=== PATIENT | male | born 1990 ===

== ENCOUNTER 2020-09-12 13:04 | Inpatient (IN) ==
[2020-09-12] MEDS ORDERED: SODIUM CHLORIDE 0.9% 1,000 ML IV STA (13:14)
[2020-09-12] MEDS ORDERED: DIPH/TET/ACEL PERT BOOSTER VACCINE 0.5 ML VIAL IM ONE (13:15)
[2020-09-12 13:34] LABS: Basophils % 0.3 % (0.0-0.8); Eosinophils # 0.1 10*3/uL (0.0-0.87); Hematocrit 44.6 VOL% (42.0-52.0); Hemoglobin 14.8 GM/DL (14.0-18.0); Immature Granulocytes % 0.3 %; Immature Granulocytes Absolute 0.02 #; Lymphocytes # 1.6 10*3/uL (1.4-4.0); Lymphocytes % 26.7 % (21.2-54.2); Mean Corpuscular HGB Conc 33.2 GM/DL (32-36); Mean Corpuscular Volume 92.1 FL (87-102); Mean Platelet Volume 9.2 FL (9.6-12.0); Monocytes % 10.5 % (1.7-12.7); Neutrophils % 61.2 % (38.7-73.9); Platelet Count 250 T/CUMM (130-400); Red Blood Count 4.84 MC/CUMM (3.8-5.5); Red Cell Distribution Width 12.2 % (9.3-17.3); White Blood Count 5.8 T/CUMM (4-12)
[2020-09-12] MEDS ORDERED: ONDANSETRON 4 MG/2 ML VIAL IV PRN ×2 (13:56→15:58)
[2020-09-12] MEDS ORDERED: ACETAMINOPHEN 325 MG TABLET PO PRN (13:56)
[2020-09-12] MEDS ORDERED: SUCCINYLCHOLINE 200 MG/10 ML VIAL ONE (14:00)
[2020-09-12] MEDS ORDERED: MIDAZOLAM 2 MG/2 ML VIAL ONE (14:00)
[2020-09-12] MEDS ORDERED: propofoL 200 MG/20 ML VIAL IV ONE (14:00)
[2020-09-12] MEDS ORDERED: fentaNYL 100 MCG/2 ML VIAL ONE (14:00)
[2020-09-12] MEDS ORDERED: LIDOCAINE 2% 5 ML VIAL ONE (14:00)
[2020-09-12 14:05] LABS: Albumin 3.6 G/DL (3.4-5.0); Bilirubin,Total 0.4 MG/DL (0.20-1.00); Calcium 8.5 MG/DL (8.5-10.1); Osmolality,Calculated 287.1 MOS/KG (273-304); Potassium 3.6 MMOL/L (3.5-5.1); Total Protein 7.4 G/DL (6.4-8.2)
[2020-09-12] MEDS ORDERED: SODIUM CHLORIDE 0.9% 1,000 ML IV ONE (14:17)
[2020-09-12] MEDS ORDERED: LACTATED RINGERS 0 ML IV ONE (14:17)
[2020-09-12 14:22] LABS: PT Patient Result 10.9 SECS (10.5-12.0); Partial Thromboplastin Time 24.2 SECS (23.9-33.8)
[2020-09-12] MEDS ORDERED: ROCURONIUM 50 MG/5 ML VIAL IV ONE (14:24)
[2020-09-12] MEDS ORDERED: GENTAMICIN 80 MG/2 ML VIAL ONE (14:33)
[2020-09-12] MEDS ORDERED: SODIUM CHLORIDE 0.9% 100 ML IV ONE (14:51)
[2020-09-12] MEDS ORDERED: ONDANSETRON 4 MG/2 ML VIAL ONE (14:55)
[2020-09-12] MEDS ORDERED: ACETAMINOPHEN INJ 1,000 MG/100 ML VIAL IV ONE (14:58)
[2020-09-12] MEDS ORDERED: GLYCOPYRROLATE 0.4 MG/2 ML VIAL ONE (15:00)
[2020-09-12] MEDS ORDERED: NEOSTIGMINE 10 MG/10 ML VIAL ONE (15:01)
[2020-09-12] MEDS ORDERED: BACITRACIN OINT 0.9 GM PACK TOP ONE (15:12)
[2020-09-12] MEDS ORDERED: ROPIVACAINE 0.5% 30 ML VIAL ONE (15:42)
[2020-09-12] MEDS ORDERED: LACTULOSE 20 GM/30 ML UDCUP PO PRN (15:54)
[2020-09-12] MEDS ORDERED: PROMETHAZINE 25 MG/1 ML VIAL IM PRN (15:54)
[2020-09-12] MEDS ORDERED: MEPERIDINE 25 MG/1 ML VIAL IV PRN (15:58)
[2020-09-12] MEDS ORDERED: HYDROmorphone 2 MG/1 ML VIAL IV PRN (15:58)
[2020-09-12] MEDS ORDERED: oxyCODONE/ACETAMINOPHEN 5-325 MG TABLET PO PRN (15:58)
[2020-09-12] MEDS ORDERED: VANCOMYCIN INJ 1,250 MG in SODIUM CHLORIDE 0.9% 250 ML IV ONE ×2 (15:59→18:00)
[2020-09-12] MEDS ORDERED: ACETAMINOPHEN 325 MG TABLET PO SCH (16:00)
[2020-09-12] MEDS ORDERED: SEVOFLURANE 1 UNIT/15 MINUTE INH ONE ×9 (16:12)
[2020-09-12] MEDS: ACETAMINOPHEN 325 MG TABLET PO SCH ×2 (17:29→22:01)
[2020-09-12] MEDS: SODIUM CHLORIDE 0.9% 1,000 ML IV SCH ×2 (18:01→21:48)
[2020-09-12 19:28] LABS: Bilirubin,Urine Negative (Negative); Blood, Urine Negative (Negative); Glucose,Urine (UA) Negative (Negative); Hyaline Casts,Urine 4 /LPF (0-3); Ketones,Urine Negative (Negative); Mucus,Urine Occasional /LPF (Occasional); Nitrite,Urine Negative (Negative); Protein,Urine Negative; RBC,Urine 1 /HPF (0-4); Squamous Epithelial Cell,Urine Occasional /HPF (0-10); Urine Appearance CLEAR (Clear); Urine Color Yellow (Yellow); Urine Specific Gravity 1.024 (1.001-1.035); Urine Urobilinogen < 2.0 EU/DL (0.2-1.0)
[2020-09-12 19:40] LABS: Barbiturates Screen,Urine Negative (Negative); Benzodiazepines Screen,Urine Positive (Negative); Cannabinoid Screen,Urine Positive (Negative); Opiate Screen,Urine Negative (Negative); Phencyclidine Screen,Urine Negative (Negative)
[2020-09-12] MEDS: BACITRACIN OINT 0.9 GM PACK TOP SCH (21:43)
[2020-09-12] MEDS: HYDROmorphone 2 MG/1 ML VIAL IV PRN (21:44)
[2020-09-12] MEDS: cefTRIAXone 1,000 MG in SODIUM CHLORIDE 0.9% 100 ML IV SCH (21:47)
[2020-09-13 04:22] LABS: Basophils % 0.3 % (0.0-0.8); Eosinophils # 0.1 10*3/uL (0.0-0.87); Eosinophils % 1.3 % (0.00-10.9); Hematocrit 39.9 VOL% (42.0-52.0); Hemoglobin 13.1 GM/DL (14.0-18.0); Immature Granulocytes % 0.1 %; Immature Granulocytes Absolute 0.01 #; Lymphocytes # 1.9 10*3/uL (1.4-4.0); Mean Corpuscular HGB Conc 32.8 GM/DL (32-36); Mean Corpuscular Volume 92.4 FL (87-102); Mean Platelet Volume 9.3 FL (9.6-12.0); Monocytes % 11.2 % (1.7-12.7); Neutrophils % 62.1 % (38.7-73.9); Platelet Count 228 T/CUMM (130-400); Red Blood Count 4.32 MC/CUMM (3.8-5.5); Red Cell Distribution Width 12.3 % (9.3-17.3); White Blood Count 7.8 T/CUMM (4-12)
[2020-09-13] MEDS: ACETAMINOPHEN 325 MG TABLET PO SCH ×4 (04:27→21:20)
[2020-09-13 04:39] LABS: Osmolality,Calculated 285.1 MOS/KG (273-304); Potassium 3.4 MMOL/L (3.5-5.1)
[2020-09-13] MEDS: SODIUM CHLORIDE 0.9% 1,000 ML IV SCH (06:06)
[2020-09-13] MEDS ORDERED: POTASSIUM CHLORIDE 20 MEQ TABLET PO ONE (07:55)
[2020-09-13] MEDS: BACITRACIN OINT 0.9 GM PACK TOP SCH ×3 (08:41→21:20)
[2020-09-13] MEDS: HYDROmorphone 2 MG/1 ML VIAL IV PRN (12:49)
[2020-09-13] MEDS: cefTRIAXone 1,000 MG in SODIUM CHLORIDE 0.9% 100 ML IV SCH (21:20)
[2020-09-14] MEDS: ACETAMINOPHEN 325 MG TABLET PO SCH ×4 (04:45→21:17)
[2020-09-14] MEDS: BACITRACIN OINT 0.9 GM PACK TOP SCH ×3 (09:19→21:17)
[2020-09-14] MEDS: HYDROmorphone 2 MG/1 ML VIAL IV PRN (13:05)
[2020-09-14] MEDS: cefTRIAXone 1,000 MG in SODIUM CHLORIDE 0.9% 100 ML IV SCH (21:19)
[2020-09-15] MEDS: ACETAMINOPHEN 325 MG TABLET PO SCH ×2 (04:23→09:21)
[2020-09-15] MEDS ORDERED: POTASSIUM CHLORIDE 20 MEQ TABLET PO ONE (07:30)
[2020-09-15] MEDS: BACITRACIN OINT 0.9 GM PACK TOP SCH (09:21)
[2020-09-15 11:28] VITALS: BP 132/75
== END 2020-09-15 12:19 | disposition home or self-care (01) | DRG 710 ==
LOC: EDBD → EDUNIT# → N.ED 13:04 → N.EDINP 13:04 → N.3E 17:10
PROVIDERS: ADMIT Surgery; ATTEND Surgery